=== PATIENT | female | born 1945 | race Caucasian/White ===

== ENCOUNTER 2017-08-11 14:09 | Emergency (ER) | payer MEDICAID ==
[2017-08-11 15:08] LABS: WHITE BLOOD COUNT 2.5 10^3/ul (4.8-10.8)
[2017-08-11 15:08] LABS: HEMATOCRIT 37.4 % (37.0-47.0); MEAN CORPUSCULAR HEMOGLOBIN 32.8 pg (29.0-33.0); MEAN CORPUSCULAR HGB CONC 34.8 g/dl (32.0-37.0); MEAN CORPUSCULAR VOLUME 94.4 fl (82.0-101.0); MEAN PLATELET VOLUME 9.2 fl (7.4-10.4); PLATELET COUNT 201 10^3/UL (140-415); RED BLOOD COUNT 3.96 10^6/ul (4.20-5.40); RED CELL DISTRIBUTION WIDTH 12.6 % (11.5-14.5)
[2017-08-11] MEDS: IPRATROPIUM (NEB) 0.5 MG/2.5 ML AMP HHN (15:13)
[2017-08-11] MEDS: ALBUTEROL 0.083% (NEB) 2.5 MG/3 ML AMP HHN (15:13)
[2017-08-11 15:15] LABS: ADD MAN DIFF? YES
[2017-08-11 15:34] LABS: INR 1.01; PARTIAL THROMBOPLASTIN TIME 30.5 Sec (25.0-35.0); PROTIME 13.4 Sec (11.9-14.9)
[2017-08-11 15:35] LABS: ALANINE AMINOTRANSFERASE 28 IU/L (13-69); ALBUMIN 4.1 g/dl (3.3-4.9); ALBUMIN/GLOBULIN RATIO 1.32; ALKALINE PHOSPHATASE 112 IU/L (42-121); ANION GAP 15 (8-16); ASPARTATE AMINO TRANSFERASE 25 IU/L (15-46); BILIRUBIN,INDIRECT 0.3 mg/dl (0-1.1); BILIRUBIN,TOTAL 0.3 mg/dl (0.2-1.3); BLOOD UREA NITROGEN 13 mg/dl (7-20); CALCIUM 9.3 mg/dl (8.4-10.2); CARBON DIOXIDE 27 mmol/L (21-31); CHLORIDE 107 mmol/L (97-110); CREATININE 0.64 mg/dl (0.44-1.00); GLUCOSE 97 mg/dl (70-220); POTASSIUM 4.4 mmol/L (3.5-5.1); SODIUM 145 mmol/L (135-144); TOTAL PROTEIN 7.2 g/dl (6.1-8.1)
[2017-08-11 15:54] LABS: BAND NEUTROPHILS % (M) 2 % (0-4); BASOPHILS % (M) 1 % (0-2); EOSINOPHILS % (M) 5 % (0-7); GIANT THROMBO% (M) 2 % (0-0); LYMPHOCYTES #M 0.7 10^3/ul (0.8-2.9); LYMPHOCYTES % (M) 29 % (15-51); MONOCYTE #M 0.5 10^3/ul (0.3-0.9); MONOCYTES % (M) 21 % (0-11); PLATELET ESTIMATE NORMAL; SEG NEUT #M 1.1 10^3/ul (1.6-7.5); SEGMENTED NEUTROPHILS (M) % 42 % (39-77); SMUDGE%M 4 % (0-0)
[2017-08-11 15:58] LABS: TROPONIN-I < 0.012 ng/ml (0.00-0.12)
== END 2017-08-11 16:57 | disposition home or self-care (01) ==
LOC: FTE 16:57
DX: J06.9 Acute upper respiratory infection, unspecified (principal); R07.9 Chest pain, unspecified; Z79.01 Long term (current) use of anticoagulants
CPT/HCPCS: 71046; 80053; 84484; 85025; 85610; 85730; 87400; 93005; 94664; 99285-25

== ENCOUNTER 2017-11-10 14:34 | Inpatient (IN) | payer MEDICAID ==
[2017-11-10 16:44] LABS: ADD MAN DIFF? NO
[2017-11-10] MEDS: DIPHENOXYLATE/ATROPINE TAB PO (16:45)
[2017-11-10] MEDS: SOD CHLORIDE 0.9% 1,000 ML IV (16:45)
[2017-11-10 16:48] LABS: BASOPHILS % 0.5 % (0.0-2.0); EOSINOPHILS % 0.7 % (0.0-7.0); HEMATOCRIT 40.7 % (37.0-47.0); HEMOGLOBIN 13.8 g/dl (12.0-16.0); LYMPHOCYTES # 1.7 10^3/ul (0.8-2.9); LYMPHOCYTES % 41.6 % (15.0-51.0); MEAN CORPUSCULAR HEMOGLOBIN 32.4 pg (29.0-33.0); MEAN CORPUSCULAR HGB CONC 33.9 g/dl (32.0-37.0); MEAN CORPUSCULAR VOLUME 95.5 fl (82.0-101.0); MEAN PLATELET VOLUME 9.6 fl (7.4-10.4); MONOCYTE # 0.5 10^3/ul (0.3-0.9); MONOCYTES % 11.5 % (0.0-11.0); NEUTROPHIL # 1.8 10^3/ul (1.6-7.5); NEUTROPHILS % 45.5 % (39.0-77.0); PLATELET COUNT 224 10^3/UL (140-415); RED BLOOD COUNT 4.26 10^6/ul (4.20-5.40); RED CELL DISTRIBUTION WIDTH 13.1 % (11.5-14.5)
[2017-11-10 17:04] LABS: ADD UMIC NO; UR ASCORBIC ACID NEGATIVE (NEGATIVE); UR BILIRUBIN (Dip) NEGATIVE (NEGATIVE); UR BLOOD (Dip) NEGATIVE (NEGATIVE); UR CLARITY CLEAR (CLEAR); UR COLOR STRAW (YELLOW); UR GLUCOSE (Dip) NEGATIVE (NEGATIVE); UR KETONES (Dip) NEGATIVE (NEGATIVE); UR LEUKOCYTE ESTERASE (Dip) NEGATIVE Leu/ul (NEGATIVE); UR NITRITE (Dip) NEGATIVE (NEGATIVE); UR SPECIFIC GRAVITY (Dip) 1.004 (1.003-1.030); UR TOTAL PROTEIN (Dip) NEGATIVE (NEGATIVE); UR UROBILINOGEN (Dip) NEGATIVE (NEGATIVE)
[2017-11-10] MEDS: SOD CHLORIDE 0.9% 100 ML (17:04)
[2017-11-10] MEDS: IODIXANOL LOCM 100 ML BTL (17:04)
[2017-11-10 17:06] LABS: ALANINE AMINOTRANSFERASE 27 IU/L (13-69); ALBUMIN 4.2 g/dl (3.3-4.9); ALKALINE PHOSPHATASE 104 IU/L (42-121); AMYLASE 60 U/L (11-123); ANION GAP 12 (8-16); ASPARTATE AMINO TRANSFERASE 25 IU/L (15-46); BILIRUBIN,INDIRECT 0.7 mg/dl (0-1.1); BILIRUBIN,TOTAL 0.7 mg/dl (0.2-1.3); BLOOD UREA NITROGEN 10 mg/dl (7-20); CALCIUM 9.7 mg/dl (8.4-10.2); CARBON DIOXIDE 32 mmol/L (21-31); CHLORIDE 102 mmol/L (97-110); CREATININE 0.75 mg/dl (0.44-1.00); GLUCOSE 100 mg/dl (70-220); LIPASE 88 U/L (23-300); POTASSIUM 3.6 mmol/L (3.5-5.1); SODIUM 142 mmol/L (135-144); TOTAL PROTEIN 7.2 g/dl (6.1-8.1)
[2017-11-10 17:08] LABS: INR 1.03; PROTIME 13.6 Sec (11.9-14.9); PT RATIO 1.1
[2017-11-10 17:09] LABS: PARTIAL THROMBOPLASTIN TIME 30.8 Sec (25.0-35.0)
[2017-11-10] MEDS ORDERED: ACETAMINOPHEN 325 MG TAB PO (18:30)
[2017-11-10] MEDS ORDERED: ONDANSETRON 4 MG INJ IV (18:30)
[2017-11-10] MEDS ORDERED: NACL 0.9% 3 ML SYG IV (19:30)
[2017-11-10] MEDS ORDERED: morphine 2 MG INJ IV (19:30)
[2017-11-11 06:13] LABS: ADD MAN DIFF? NO
[2017-11-11 06:15] LABS: WHITE BLOOD COUNT 2.8 10^3/ul (4.8-10.8)
[2017-11-11 06:15] LABS: BASOPHILS % 0.4 % (0.0-2.0); EOSINOPHILS # 0.2 10^3/ul (0.0-0.5); EOSINOPHILS % 5.3 % (0.0-7.0); HEMATOCRIT 36.7 % (37.0-47.0); HEMOGLOBIN 12.6 g/dl (12.0-16.0); LYMPHOCYTES # 1.4 10^3/ul (0.8-2.9); LYMPHOCYTES % 48.1 % (15.0-51.0); MEAN CORPUSCULAR HEMOGLOBIN 32.9 pg (29.0-33.0); MEAN CORPUSCULAR HGB CONC 34.3 g/dl (32.0-37.0); MEAN CORPUSCULAR VOLUME 95.8 fl (82.0-101.0); MEAN PLATELET VOLUME 9.8 fl (7.4-10.4); MONOCYTE # 0.3 10^3/ul (0.3-0.9); MONOCYTES % 9.5 % (0.0-11.0); NEUTROPHILS % 36.3 % (39.0-77.0); PLATELET COUNT 198 10^3/UL (140-415); RED BLOOD COUNT 3.83 10^6/ul (4.20-5.40); RED CELL DISTRIBUTION WIDTH 13.2 % (11.5-14.5)
[2017-11-11 06:32] LABS: HEMOGLOBIN A1C 5.5 % (0-5.9)
[2017-11-11 06:39] LABS: ALANINE AMINOTRANSFERASE 27 IU/L (13-69); ALBUMIN 3.6 g/dl (3.3-4.9); ALBUMIN/GLOBULIN RATIO 1.28; ALKALINE PHOSPHATASE 85 IU/L (42-121); ASPARTATE AMINO TRANSFERASE 21 IU/L (15-46); BILIRUBIN,INDIRECT 0.9 mg/dl (0-1.1); BILIRUBIN,TOTAL 0.9 mg/dl (0.2-1.3); BLOOD UREA NITROGEN 9 mg/dl (7-20); CARBON DIOXIDE 28 mmol/L (21-31); CHLORIDE 107 mmol/L (97-110); CREATININE 0.69 mg/dl (0.44-1.00); GLUCOSE 84 mg/dl (70-220); SODIUM 142 mmol/L (135-144); TOTAL PROTEIN 6.4 g/dl (6.1-8.1)
[2017-11-11 07:03] LABS: ANION GAP 11 (8-16)
[2017-11-11] MEDS: DILTIAZEM (CD) 120 MG CAP PO (08:15)
[2017-11-11] MEDS: ENOXAPARIN 40 MG/0.4 ML SYG SC (08:17)
[2017-11-11 12:12] LABS: CARCINOEMBRYONIC ANTIGEN 1.4 ng/ml (0.0-5.0)
[2017-11-11 12:17] LABS: CANCER ANTIGEN 19-9 5.8 U/ml (0.0-37.0)
[2017-11-11 12:22] LABS: ALPHA FETOPROTEIN 2.74 IU/L (0.00-7.21)
[2017-11-11] MEDS ORDERED: morphine LIQ (10 MG/5 ML) CUP PO (14:00)
[2017-11-12 06:30] LABS: ADD MAN DIFF? NO
[2017-11-12 06:35] LABS: BASOPHILS % 0.7 % (0.0-2.0); EOSINOPHILS # 0.1 10^3/ul (0.0-0.5); EOSINOPHILS % 3.7 % (0.0-7.0); HEMATOCRIT 39.1 % (37.0-47.0); HEMOGLOBIN 13.3 g/dl (12.0-16.0); LYMPHOCYTES # 1.3 10^3/ul (0.8-2.9); LYMPHOCYTES % 47.3 % (15.0-51.0); MEAN CORPUSCULAR HEMOGLOBIN 32.8 pg (29.0-33.0); MEAN CORPUSCULAR VOLUME 96.3 fl (82.0-101.0); MEAN PLATELET VOLUME 9.9 fl (7.4-10.4); MONOCYTE # 0.3 10^3/ul (0.3-0.9); MONOCYTES % 11.4 % (0.0-11.0); NEUTROPHILS % 36.5 % (39.0-77.0); PLATELET COUNT 203 10^3/UL (140-415); RED BLOOD COUNT 4.06 10^6/ul (4.20-5.40); RED CELL DISTRIBUTION WIDTH 12.8 % (11.5-14.5)
[2017-11-12 06:35] LABS: WHITE BLOOD COUNT 2.7 10^3/ul (4.8-10.8)
[2017-11-12 07:25] LABS: ANION GAP 9 (8-16); BLOOD UREA NITROGEN 7 mg/dl (7-20); CALCIUM 9.2 mg/dl (8.4-10.2); CARBON DIOXIDE 28 mmol/L (21-31); CHLORIDE 107 mmol/L (97-110); CREATININE 0.64 mg/dl (0.44-1.00); GLUCOSE 102 mg/dl (70-220); MAGNESIUM 2.2 mg/dl (1.7-2.5); POTASSIUM 3.8 mmol/L (3.5-5.1); SODIUM 140 mmol/L (135-144)
[2017-11-12] MEDS: DILTIAZEM (CD) 120 MG CAP PO (09:08)
[2017-11-12] MEDS: ENOXAPARIN 40 MG/0.4 ML SYG SC (09:11)
== END 2017-11-12 12:55 | disposition home or self-care (01) | DRG 440 ==
LOC: E/R 14:34 → MS2 18:21
DX: K86.89 Other specified diseases of pancreas (principal); R16.0 Hepatomegaly, not elsewhere classified; R19.7 Diarrhea, unspecified; I48.91 Unspecified atrial fibrillation
CPT/HCPCS: 74177; 74181; 76705; 80048; 80053; 81003; 82105; 82150; 82378; 83036; 83690; 83735; 85025; 85610; 85730; 86301; 87075; 87086

== ENCOUNTER 2018-02-24 15:49 | Emergency (ER) | payer MEDICAID ==
[2018-02-24 18:43] LABS: ADD MAN DIFF? NO
[2018-02-24 18:52] LABS: BASOPHILS % 0.5 % (0.0-2.0); EOSINOPHILS # 0.1 10^3/ul (0.0-0.5); EOSINOPHILS % 2.1 % (0.0-7.0); HEMATOCRIT 37.5 % (37.0-47.0); HEMOGLOBIN 12.6 g/dl (12.0-16.0); LYMPHOCYTES # 1.5 10^3/ul (0.8-2.9); LYMPHOCYTES % 39.7 % (15.0-51.0); MEAN CORPUSCULAR HEMOGLOBIN 32.6 pg (29.0-33.0); MEAN CORPUSCULAR HGB CONC 33.6 g/dl (32.0-37.0); MEAN CORPUSCULAR VOLUME 96.9 fl (82.0-101.0); MEAN PLATELET VOLUME 9.2 fl (7.4-10.4); MONOCYTE # 0.4 10^3/ul (0.3-0.9); MONOCYTES % 10.1 % (0.0-11.0); NEUTROPHIL # 1.8 10^3/ul (1.6-7.5); NEUTROPHILS % 47.3 % (39.0-77.0); PLATELET COUNT 235 10^3/UL (140-415); RED BLOOD COUNT 3.87 10^6/ul (4.20-5.40); RED CELL DISTRIBUTION WIDTH 13.2 % (11.5-14.5)
[2018-02-24 18:52] LABS: WHITE BLOOD COUNT 3.8 10^3/ul (4.8-10.8)
[2018-02-24] MEDS: SOD CHLORIDE 0.9% 500 ML IV (19:06)
[2018-02-24 19:09] LABS: ANION GAP 9 (8-16); BLOOD UREA NITROGEN 14 mg/dl (7-20); CALCIUM 9.4 mg/dl (8.4-10.2); CARBON DIOXIDE 30 mmol/L (21-31); CHLORIDE 105 mmol/L (97-110); CREATININE 0.64 mg/dl (0.44-1.00); GLUCOSE 90 mg/dl (70-220); POTASSIUM 4.1 mmol/L (3.5-5.1); SODIUM 140 mmol/L (135-144)
[2018-02-24 19:10] LABS: INR 0.94; PROTIME 12.7 Sec (11.9-14.9)
[2018-02-24 19:15] LABS: ADD UMIC NO; UR ASCORBIC ACID NEGATIVE (NEGATIVE); UR BILIRUBIN (Dip) NEGATIVE (NEGATIVE); UR BLOOD (Dip) NEGATIVE (NEGATIVE); UR CLARITY CLEAR (CLEAR); UR COLOR YELLOW (YELLOW); UR GLUCOSE (Dip) NEGATIVE (NEGATIVE); UR KETONES (Dip) NEGATIVE (NEGATIVE); UR LEUKOCYTE ESTERASE (Dip) NEGATIVE Leu/ul (NEGATIVE); UR NITRITE (Dip) NEGATIVE (NEGATIVE); UR SPECIFIC GRAVITY (Dip) 1.023 (1.003-1.030); UR TOTAL PROTEIN (Dip) NEGATIVE (NEGATIVE); UR UROBILINOGEN (Dip) NEGATIVE (NEGATIVE)
[2018-02-24 19:20] LABS: TROPONIN-I < 0.012 ng/ml (0.000-0.120)
[2018-02-24] MEDS: KETOROLAC 15 MG INJ IV (19:44)
[2018-02-24] MEDS: METOCLOPRAMIDE 10 MG INJ IV (20:00)
[2018-02-24] MEDS: DIPHENHYDRAMINE 50 MG INJ IV (20:00)
[2018-02-24 21:21] LABS: FREE T4 (FREE THYROXINE) 1.05 ng/dl (0.78-2.44)
== END 2018-02-24 22:10 | disposition home or self-care (01) ==
LOC: E/R 15:49
DX: R53.83 Other fatigue (principal); H93.12 Tinnitus, left ear; D72.819 Decreased white blood cell count, unspecified; R51 Headache; I10 Essential (primary) hypertension; R55 Syncope and collapse
CPT/HCPCS: 36415; 70450; 71045; 80048; 81003; 82962; 84439; 84443; 84484; 85025; 85610; 93005; 99285-25

== ENCOUNTER 2018-07-14 20:12 | Observation (INO) | payer MEDICAID ==
[2018-07-15 02:23] LABS: ADD MAN DIFF? NO
[2018-07-15 02:24] LABS: WHITE BLOOD COUNT 4.1 10^3/ul (4.8-10.8)
[2018-07-15 02:24] LABS: BASOPHILS % 0.2 % (0.0-2.0); EOSINOPHILS # 0.1 10^3/ul (0.0-0.5); EOSINOPHILS % 2.2 % (0.0-7.0); HEMATOCRIT 37.8 % (37.0-47.0); HEMOGLOBIN 12.7 g/dl (12.0-16.0); LYMPHOCYTES # 1.8 10^3/ul (0.8-2.9); MEAN CORPUSCULAR HEMOGLOBIN 32.7 pg (29.0-33.0); MEAN CORPUSCULAR HGB CONC 33.6 g/dl (32.0-37.0); MEAN CORPUSCULAR VOLUME 97.4 fl (82.0-101.0); MEAN PLATELET VOLUME 9.4 fl (7.4-10.4); MONOCYTE # 0.5 10^3/ul (0.3-0.9); MONOCYTES % 11.8 % (0.0-11.0); NEUTROPHIL # 1.7 10^3/ul (1.6-7.5); NEUTROPHILS % 41.6 % (39.0-77.0); PLATELET COUNT 220 10^3/UL (140-415); RED BLOOD COUNT 3.88 10^6/ul (4.20-5.40); RED CELL DISTRIBUTION WIDTH 12.6 % (11.5-14.5)
[2018-07-15 02:42] LABS: ALANINE AMINOTRANSFERASE 22 IU/L (13-69); ALBUMIN 4.2 g/dl (3.3-4.9); ALKALINE PHOSPHATASE 133 IU/L (42-121); ANION GAP 4 (5-13); ASPARTATE AMINO TRANSFERASE 24 IU/L (15-46); BILIRUBIN,INDIRECT 0.2 mg/dl (0-1.1); BILIRUBIN,TOTAL 0.2 mg/dl (0.2-1.3); BLOOD UREA NITROGEN 23 mg/dl (7-20); CALCIUM 9.7 mg/dl (8.4-10.2); CARBON DIOXIDE 32 mmol/L (21-31); CHLORIDE 104 mmol/L (97-110); GLUCOSE 109 mg/dl (70-220); POTASSIUM 4.6 mmol/L (3.5-5.1); SODIUM 140 mmol/L (135-144); TOTAL PROTEIN 7.2 g/dl (6.1-8.1)
[2018-07-15 02:50] LABS: B-TYPE NATRIURETIC PEPTIDE 368 PG/ML (0-125)
[2018-07-15 02:55] LABS: TROPONIN-I < 0.012 ng/ml (0.000-0.120)
[2018-07-15] MEDS ORDERED: NACL 0.9% 3 ML SYG IV (04:00)
[2018-07-15] MEDS ORDERED: DOCUSATE SODIUM 100 MG CAP PO (04:00)
[2018-07-15] MEDS ORDERED: ONDANSETRON 4 MG INJ IV (04:00)
[2018-07-15] MEDS ORDERED: MAGNESIUM HYDROXIDE 30ML CUP PO (04:00)
[2018-07-15] MEDS ORDERED: ACETAMINOPHEN 325 MG TAB PO (04:00)
[2018-07-15] MEDS ORDERED: morphine 2 MG INJ IV (04:00)
[2018-07-15] MEDS ORDERED: HYDROCODONE/APAP (5/325) TAB PO (04:00)
[2018-07-15] MEDS ORDERED: NITROGLYCERIN (SL) 0.4 MG TAB SL (04:00)
[2018-07-15 05:18] LABS: ADD MAN DIFF? NO
[2018-07-15 05:22] LABS: WHITE BLOOD COUNT 3.5 10^3/ul (4.8-10.8)
[2018-07-15 05:23] LABS: BASOPHILS % 0.3 % (0.0-2.0); EOSINOPHILS # 0.1 10^3/ul (0.0-0.5); HEMOGLOBIN 12.2 g/dl (12.0-16.0); LYMPHOCYTES # 1.6 10^3/ul (0.8-2.9); LYMPHOCYTES % 46.8 % (15.0-51.0); MEAN CORPUSCULAR HGB CONC 33.9 g/dl (32.0-37.0); MEAN CORPUSCULAR VOLUME 97.3 fl (82.0-101.0); MEAN PLATELET VOLUME 9.4 fl (7.4-10.4); MONOCYTE # 0.3 10^3/ul (0.3-0.9); MONOCYTES % 9.5 % (0.0-11.0); NEUTROPHIL # 1.4 10^3/ul (1.6-7.5); NEUTROPHILS % 41.4 % (39.0-77.0); PLATELET COUNT 207 10^3/UL (140-415); RED CELL DISTRIBUTION WIDTH 12.5 % (11.5-14.5)
[2018-07-15 05:50] LABS: ANION GAP 11 (5-13); BLOOD UREA NITROGEN 20 mg/dl (7-20); CALCIUM 9.4 mg/dl (8.4-10.2); CARBON DIOXIDE 30 mmol/L (21-31); CHLORIDE 102 mmol/L (97-110); CREATININE 0.67 mg/dl (0.44-1.00); GLUCOSE 97 mg/dl (70-220); MAGNESIUM 2.2 mg/dl (1.7-2.5); POTASSIUM 4.8 mmol/L (3.5-5.1); SODIUM 143 mmol/L (135-144)
[2018-07-15 05:52] LABS: CHOLESTEROL 145 mg/dl (100-200)
[2018-07-15 05:52] LABS: CHOL/HDL RATIO 2.4 RATIO; HDL CHOLESTEROL 60 mg/dl (33-92); LDL CHOLESTEROL,CALCULATED 76 mg/dl; TRIGLYCERIDES 43 mg/dl (0-149)
[2018-07-15 06:15] LABS: HEMOGLOBIN A1C 5.3 % (0-5.9)
[2018-07-15] MEDS: PANTOPRAZOLE 40 MG INJ IV (08:01)
[2018-07-15 08:13] LABS: CREATINE KINASE 33 IU/L (23-200)
[2018-07-15 08:23] LABS: CK INDEX 1.1; CK-MB 0.37 ng/ml (0.0-2.4); TROPONIN-I < 0.012 ng/ml (0.000-0.120)
[2018-07-15] MEDS: CYANOCOBALAMIN 100 MCG TAB PO (09:00)
[2018-07-15] MEDS ORDERED: NON-FORMULARY/PATIENT OWN MED (Ubidecarenone (Coq10) 50 MG) PO (09:00)
[2018-07-15] MEDS: DILTIAZEM (CD) 120 MG CAP PO (10:17)
[2018-07-15] MEDS: CLOPIDOGREL 75 MG TAB PO (10:17)
[2018-07-15] MEDS: ENOXAPARIN 40 MG/0.4 ML SYG SC (10:32)
[2018-07-15] MEDS: DEXTROSE 5%-0.45% NACL 1,000 ML IV (10:35)
[2018-07-15 14:03] LABS: FREE T4 (FREE THYROXINE) 1.15 ng/dl (0.78-2.44)
[2018-07-15 14:30] LABS: CREATINE KINASE 34 IU/L (23-200)
[2018-07-15 14:45] LABS: CK INDEX 1.4; CK-MB 0.47 ng/ml (0.0-2.4); TROPONIN-I < 0.012 ng/ml (0.000-0.120)
== END 2018-07-15 16:25 | disposition home or self-care (01) ==
LOC: E/R 20:12 → 6WM 07-15 03:37
DX: R07.9 Chest pain, unspecified (principal); I83.90 Asymptomatic varicose veins of unspecified lower extremity; I48.2 Chronic atrial fibrillation; I10 Essential (primary) hypertension; E03.9 Hypothyroidism, unspecified
CPT/HCPCS: 71045; 80048; 80053; 80061; 82550; 82553; 82607; 82652; 83036; 83735; 83880; 84439; 84443; 84484; 85025; 93005; 93306; G0378

== ENCOUNTER 2018-10-12 01:48 | Inpatient (IN) | payer MEDICAID ==
[2018-10-12] MEDS: ASPIRIN 325 MG TAB PO (02:23)
[2018-10-12] MEDS: DILTIAZEM 25 MG INJ IV (02:23)
[2018-10-12] MEDS: ENOXAPARIN 80 MG/0.8 ML SYG SC (02:24)
[2018-10-12 02:37] LABS: ADD MAN DIFF? NO
[2018-10-12 02:38] LABS: BASOPHILS % 0.2 % (0.0-2.0); EOSINOPHILS # 0.2 10^3/ul (0.0-0.5); EOSINOPHILS % 3.2 % (0.0-7.0); HEMATOCRIT 42.3 % (37.0-47.0); HEMOGLOBIN 13.9 g/dl (12.0-16.0); LYMPHOCYTES # 2.1 10^3/ul (0.8-2.9); LYMPHOCYTES % 40.4 % (15.0-51.0); MEAN CORPUSCULAR HEMOGLOBIN 31.4 pg (29.0-33.0); MEAN CORPUSCULAR HGB CONC 32.9 g/dl (32.0-37.0); MEAN CORPUSCULAR VOLUME 95.7 fl (82.0-101.0); MEAN PLATELET VOLUME 9.3 fl (7.4-10.4); MONOCYTE # 0.5 10^3/ul (0.3-0.9); MONOCYTES % 8.9 % (0.0-11.0); NEUTROPHIL # 2.4 10^3/ul (1.6-7.5); NEUTROPHILS % 47.1 % (39.0-77.0); PLATELET COUNT 263 10^3/UL (140-415); RED BLOOD COUNT 4.42 10^6/ul (4.20-5.40); RED CELL DISTRIBUTION WIDTH 12.8 % (11.5-14.5)
[2018-10-12 02:38] LABS: WHITE BLOOD COUNT 5.1 10^3/ul (4.8-10.8)
[2018-10-12] MEDS: DILTIAZEM-D5W 125MG/125ML DRIP 125 ML IV (02:42)
[2018-10-12 02:58] LABS: INR 1.73; PROTIME 20.3 Sec (11.9-14.9); PT RATIO 1.6
[2018-10-12 02:59] LABS: ALANINE AMINOTRANSFERASE 19 IU/L (13-69); ALBUMIN 4.7 g/dl (3.3-4.9); ALBUMIN/GLOBULIN RATIO 1.27; ALKALINE PHOSPHATASE 158 IU/L (42-121); ANION GAP 9 (5-13); ASPARTATE AMINO TRANSFERASE 31 IU/L (15-46); BILIRUBIN,INDIRECT 0.5 mg/dl (0-1.1); BILIRUBIN,TOTAL 0.5 mg/dl (0.2-1.3); BLOOD UREA NITROGEN 19 mg/dl (7-20); CALCIUM 9.9 mg/dl (8.4-10.2); CARBON DIOXIDE 28 mmol/L (21-31); CHLORIDE 107 mmol/L (97-110); CREATININE 0.55 mg/dl (0.44-1.00); GLUCOSE 127 mg/dl (70-220); PARTIAL THROMBOPLASTIN TIME 41.9 Sec (23.0-35.0); POTASSIUM 4.1 mmol/L (3.5-5.1); SODIUM 144 mmol/L (135-144); TOTAL PROTEIN 8.4 g/dl (6.1-8.1)
[2018-10-12 03:09] LABS: TROPONIN-I 0.014 ng/ml (0.000-0.120)
[2018-10-12] MEDS ORDERED: NACL 0.9% 3 ML SYG IV (04:30)
[2018-10-12] MEDS ORDERED: ONDANSETRON 4 MG INJ IV (04:30)
[2018-10-12] MEDS ORDERED: ACETAMINOPHEN 325 MG TAB PO ×2 (04:30)
[2018-10-12] MEDS ORDERED: DOCUSATE SODIUM 100 MG CAP PO (04:30)
[2018-10-12] MEDS ORDERED: NITROGLYCERIN (SL) 0.4 MG TAB SL (04:30)
[2018-10-12] MEDS ORDERED: BISACODYL 10 MG SUPP PR (04:30)
[2018-10-12 06:07] LABS: MAGNESIUM 2.3 mg/dl (1.7-2.5)
[2018-10-12 06:07] LABS: CHOL/HDL RATIO 2.6 RATIO; LDL CHOLESTEROL,CALCULATED 101 mg/dl
[2018-10-12 06:11] LABS: CHOLESTEROL 206 mg/dl (100-200)
[2018-10-12 06:11] LABS: HDL CHOLESTEROL 78 mg/dl (33-92); TRIGLYCERIDES 136 mg/dl (0-149)
[2018-10-12 07:49] LABS: HEMOGLOBIN A1C 5.4 % (0-5.9)
[2018-10-12 12:41] LABS: FREE T4 (FREE THYROXINE) 1.34 ng/dl (0.78-2.44)
[2018-10-12 13:09] LABS: CREATINE KINASE 39 IU/L (23-200)
[2018-10-12 13:22] LABS: CK INDEX 1.1; CK-MB 0.43 ng/ml (0.0-2.4); TROPONIN-I < 0.012 ng/ml (0.000-0.120)
[2018-10-12] MEDS: AMIODARONE 150MG/D5W BOLUS 100 ML IV (13:25)
[2018-10-12] MEDS: AMIODARONE 900 MG in DEXTROSE 5% 482 ML IV ×2 (13:35→20:00)
[2018-10-12 18:13] LABS: CREATINE KINASE 39 IU/L (23-200)
[2018-10-12 18:27] LABS: CK INDEX 1.3; CK-MB 0.51 ng/ml (0.0-2.4); TROPONIN-I < 0.012 ng/ml (0.000-0.120)
[2018-10-12] MEDS: RIVAROXABAN 20 MG TABLET PO (18:57)
[2018-10-12] MEDS: ATORVASTATIN 40 MG TAB PO (20:12)
[2018-10-13 06:37] LABS: ANION GAP 8 (5-13); BLOOD UREA NITROGEN 21 mg/dl (7-20); CALCIUM 9.1 mg/dl (8.4-10.2); CARBON DIOXIDE 24 mmol/L (21-31); CHLORIDE 110 mmol/L (97-110); CREATININE 0.65 mg/dl (0.44-1.00); GLUCOSE 101 mg/dl (70-220); MAGNESIUM 2.2 mg/dl (1.7-2.5); POTASSIUM 3.9 mmol/L (3.5-5.1); SODIUM 142 mmol/L (135-144)
[2018-10-13] MEDS: DILTIAZEM (CD) 120 MG CAP PO (10:24)
[2018-10-13] MEDS ORDERED: AMIODARONE 200 MG TAB (15:10)
[2018-10-13] MEDS: AMIODARONE 200 MG TAB PO (15:14)
[2018-10-13] MEDS: RIVAROXABAN 20 MG TABLET PO (17:45)
[2018-10-13] MEDS: ATORVASTATIN 40 MG TAB PO (21:35)
[2018-10-14 05:46] LABS: ANION GAP 6 (5-13); BLOOD UREA NITROGEN 16 mg/dl (7-20); CALCIUM 9.2 mg/dl (8.4-10.2); CARBON DIOXIDE 27 mmol/L (21-31); CHLORIDE 109 mmol/L (97-110); CREATININE 0.66 mg/dl (0.44-1.00); GLUCOSE 98 mg/dl (70-220); MAGNESIUM 2.1 mg/dl (1.7-2.5); SODIUM 142 mmol/L (135-144)
[2018-10-14] MEDS: AMIODARONE 200 MG TAB PO (06:11)
[2018-10-14] MEDS: DILTIAZEM (CD) 120 MG CAP PO (08:45)
== END 2018-10-14 16:00 | disposition home or self-care (01) | DRG 310 ==
LOC: E/R 01:48 → 6WM 04:21
DX: I48.0 Paroxysmal atrial fibrillation (principal); E03.9 Hypothyroidism, unspecified; I10 Essential (primary) hypertension; E78.5 Hyperlipidemia, unspecified; Z88.0 Allergy status to penicillin; Z79.01 Long term (current) use of anticoagulants
CPT/HCPCS: 36415; 71045; 80048; 80053; 80061; 82550; 82553; 83036; 83735; 84439; 84443; 84484; 85025; 85610; 85730; 93005; 93306; 96372; 96374; 96375; 97161; 99285-25